=== PATIENT | male | born 1950 ===

== ENCOUNTER → 2018-04-30 | Outpatient (CLI) | payer MEDICAID ==
[2018-04-30 19:27] LABS: BILIRUBIN,URINE NEGATIVE (NEGATIVE)
[2018-04-30 19:55] LABS: APPEARANCE,URINE CLEAR (CLEAR); UA COLOR YELLOW (YELLOW)
== END | disposition home or self-care (01) ==
LOC: LAB 17:20
PROVIDERS: ATTEND Family Medicine
DX: I10 Essential (primary) hypertension (principal); F20.0 Paranoid schizophrenia
CPT/HCPCS: 81002